=== PATIENT | female | born 1985 | race Caucasian/White ===

== ENCOUNTER 2023-11-30 09:39 | Emergency (ER) | payer OTHER, SELFPAY ==
--- NOTE | ~2023-11-30 | XR_ITS ---
EXAMINATION: XR ankle RT min 3V DATE: 11/30/2023 10:22 INDICATION: Right ankle inversion injury and pain. TECHNIQUE: 4 views of right ankle were obtained. COMPARISON: Right ankle radiographs 12/20/2015 FINDINGS: Alignment is normal. No acute fracture. There is heterotopic ossification distal to lateral malleolus. There is mild midfoot osteoarthritis. There are enthesophytes at the posterior and planta r aspects of calcaneal tuberosity. Ankle soft tissue swelling is noted. IMPRESSION: 1. No acute fracture. Reviewed, dictated and finalized at location A. IMPRESSION: 1. No acute fracture.
--- NOTE | ~2023-11-30 | XR_ITS ---
EXAMINATION: XR ankle LT min 3V DATE: 11/30/2023 10:22 INDICATION: Left ankle injury and pain. TECHNIQUE: 4 views of left ankle were obtained. COMPARISON: None. FINDINGS: Bone alignment is normal. No fracture. 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 There are enthesophytes at the posterior and plantar aspects of calcaneal tuberosity. Ankle soft tissue swelling is noted. IMPRESSION: 1. No acute fracture. Reviewed, dictated and finalized at location A. IMPRESSION: 1. No acute fracture.
[2023-11-30 09:46] VITALS: BP 112/78; PULSE 102; RESP 18; TEMP 36.1; O2SAT 100
--- NOTE | 2023-11-30 09:59 | ED.LOWEXIN ---
HPI - Extremity Injury (Lower) General Chief Complaint: Extremity Injury, Lower Stated Complaint: Fall Injury to Ankles Time Seen by Provider: 11/30/23 09:59 Source: patient Mode of arrival: ambulatory Limitations: no limitations History of Present Illness HPI Narrative: 38-year-old female presents with complaint of pain to bilateral ankles. Patient states that she was walking down stairs and fell, rolled both of her ankles. Ambulatory with steady gait. States both ankles feel tight when 1st standing up. No other injury. All systems reviewed and negative except as noted above. Related Data Home Medications Medication Instructions Recorded Confirmed azelastine 137 mcg (0.1 %) nasal intranasal 11/30/23 spray aerosol bupropion HCl 300 mg 24 hr tablet, mg PO 11/30/23 extended release dextroamphetamine-amphetamine ER PO 11/30/23 30 mg 24hr capsule,extend release duloxetine 30 mg capsule,delayed mg PO 11/30/23 release lorazepam 0.5 mg tablet mg 11/30/23 metformin 500 mg tablet mg 11/30/23 metoclopramide HCl 5 mg tablet mg 11/30/23 metoprolol succinate 50 mg mg PO 11/30/23 tablet,extended release 24 hr metoprolol succinate 50 mg mg PO 11/30/23 tablet,extended release 24 hr spironolactone 50 mg tablet mg 11/30/23 Allergies Allergy/AdvReac Type Severity Reaction Status Date / Time latex Allergy Mild RASH Verified 12/20/15 08:19 ziprasidone [From Geodon] Allergy Unknown Verified 11/30/23 10:04 Review of Systems Review of Systems: CONSTITUTIONAL: Denies fever, chills, or sweats. EYES: Denies visual changes, redness, or discharge. ENT: Denies rhinorrhea, congestion, sore throat, or otalgia. CARDIOVASCULAR: Denies chest pain, palpitations, or edema. RESPIRATORY: Denies cough or dyspnea. GASTROINTESTINAL: Denies abdominal pain, nausea, vomiting, or diarrhea. GENITOURINARY: Denies dysuria or hematuria. SKIN: Denies rash or itching. MUSCULOSKELETAL: Reports pain and swelling to bilateral ankles. NEUROLOGIC: Denies headache, numbness, or weakness. PSYCHIATRIC: Denies anxiety or depression. All other systems reviewed are negative, except as documented in HPI. FOR[facility], [facility] Comments At time of signature, agree with nursing past medical, surgical, social and family history. There is no relevant family history pertinent to the presenting complaint. Exam Narrative: GENERAL: This is a well-nourished, well-developed patient, in no apparent distress. HEAD: normocephalic, atraumatic. EYES: PERRL. Sclera clear/white. Vision is grossly intact. EARS: External ears normal NOSE: External nose normal NECK: Neck supple, non-tender without lymphadenopathy, masses or thyromegaly. CARDIOVASCULAR: Regular rate and rhythm without murmurs, gallops, or rubs. RESPIRATORY: Clear to auscultation. Breath sounds equal bilaterally. No wheezes, rales, or rhonchi. SKIN: warm, Dry, intact with no suspicious lesions or rash, good texture and turgor. NEURO: awake, alert, and oriented to person, place and time. There were no obvious focal neurologic abnormalities. EXTREMITIES: Soft tissue swelling to lateral aspect bilateral ankles. Generalized tenderness. No instability noted. Distal neurovascularly intact. Range of motion decreased due to pain. Course Course Level of Care: Express Care Visit Vital Signs Vital signs: Vital Signs Temperature 36.1 C L 11/30/23 09:46 Pulse Rate 102 H 11/30/23 09:46 Respiratory Rate 18 11/30/23 09:46 Blood Pressure 112/78 11/30/23 09:46 Pulse Oximetry 100 11/30/23 09:46 Oxygen Delivery Room Air 11/30/23 09:46 Temperature 36.1 C L 11/30/23 09:46 Pulse Rate 102 H 11/30/23 09:46 Respiratory Rate 18 11/30/23 09:46 Blood Pressure 112/78 11/30/23 09:46 Pulse Oximetry 100 11/30/23 09:46 Oxygen Delivery Room Air 11/30/23 09:46 Reviewed MDM - Extremity Injury (Lower) MDM Narrative Medical decision making narrative: Discussed x-ray results
== END 2023-11-30 10:54 | disposition home or self-care (01) ==
PROVIDERS: Emergency Provider Nurse Practitioner Family; PCP Family Medicine
DX: S93.402A Sprain of unspecified ligament of left ankle, initial encounter (principal); S93.401A Sprain of unspecified ligament of right ankle, initial encounter; W10.9XXA Fall (on) (from) unspecified stairs and steps, initial encounter; J45.909 Unspecified asthma, uncomplicated; E28.2 Polycystic ovarian syndrome
CPT/HCPCS: 73610; 99214; G0463